=== PATIENT | female | born 1990 | race Caucasian/White ===

== ENCOUNTER → 2019-04-01 | Emergency (ER) | payer BC ==
[~2019-04-01] VITALS: Ht 162.6 cm; Wt 75.0 kg
[~2019-04-01] MED LIST: CYCL10TA7 PO; HYDR-4011 PO; IBUP-1542 PO; LORA-441 PO; LORAZEPAM 1 MG TAB PO ONE
[2019-04-01 03:56] VITALS: Ht 162.6 cm; Wt 75.0 kg
--- NOTE | 2019-04-01 04:48 | ERD ---
ER Documentation Chief Complaint Chief Complaint ANXIOUS DUE TO STRESS FROM PARENTS; HAVING DIARRHEA; DENIES SI/HI HPI 28-year-old female, previously healthy, presents to the emergency department complaining of sudden onset of dizziness, chest pain, palpitations associated with perioral numbness and finger paresthesias. The patient states that she has been under a lot of stress and persistent worrying about health and family. She has had similar episodes in the past but less intense. She is not taking any medication at this time. History provided by patient. ROS All systems reviewed and are negative except as per history of present illness. Medications Home Meds Active Scripts Lorazepam* (Ativan*) 0.5 Mg Tablet, 0.5 MG PO Q8H PRN for ANXIETY, #10 TAB Prov:DEEPIKA RAYA MD 04/01/19 Ibuprofen* (Motrin*) 600 Mg Tab, 600 MG PO Q6H PRN for PAIN AND OR ELEVATED TEMP, #30 TAB Prov:OMARI RASHID NP 04/20/16 Cyclobenzaprine Hcl* (Cyclobenzaprine Hcl*) 10 Mg Tablet, 10 MG PO TID, #15 TAB Prov:OMARI RASHID NP 04/20/16 Hydrocodone/Acetaminophen ([place] 5-325 Tablet) 1 Each Tablet, 1 TAB PO Q6H PRN for PAIN, #20 TAB Prov:OMARI RASHID NP 04/20/16 Reported Medications [none] Unknown Strength No Conflict Check 04/20/16 Allergies Allergies: Coded Allergies: vancomycin (Verified Allergy, Unknown, 04/01/19) PMhx/Soc History of Surgery: No Anesthesia Reaction: No Hx Neurological Disorder: No Hx Respiratory Disorders: No Hx Cardiac Disorders: No Hx Psychiatric Problems: No Hx Miscellaneous Medical Probl: No Hx Alcohol Use: No Hx Substance Use: No Hx Tobacco Use: Yes FmHx Family History: No diabetes, No coronary disease Physical Exam Vitals Vital Signs Date Temp Pulse Resp B/P (MAP) Pulse Ox O2 O2 Flow FiO2 Time Delivery Rate 04/01/19 98.9 97 18 130/80 99 Room Air 06:01 (97) 04/01/19 99.5 107 20 153/77 99 03:56 (102) Physical Exam Const: No acute distress Head: Atraumatic Eyes: Normal Conjunctiva ENT: Normal External Ears, Nose and Mouth. Neck: Full range of motion. No meningismus. Resp: Clear to auscultation bilaterally Cardio: Regular rate and rhythm, no murmurs Abd: Soft, non tender, non distended. Normal bowel sounds Skin: No petechiae or rashes Back: No midline or flank tenderness Ext: No cyanosis, or edema Neur: Awake and alert Psych: Normal Mood and Affect Results 24 hrs Laboratory Tests Test 04/01/19 04:57 POC Beta HCG, Qualitative NEGATIVE Current Medications Medications Dose Sig/Lynnette Start Time Status Last (Trade) Ordered Route PRN Stop Time Admin Dose Reason Admin Lorazepam 1 mg ONCE ONCE 04/01/19 DC 04/01/19 (Ativan) PO 05:00 04/01/19 05:03 05:01 Procedures/MDM Vital signs stable, Physical exam unremarkable, neurovascular exam intact. Differential diagnosis include but not limited to: Depression, anxiety, migraine, thyroid disease, electrolyte imbalance. Low suspicion for acute coronary event, aortic dissection, CVA. Physical examination and clinical presentation consistent most likely with anxiety. During the ED course the patient remained stable, no new complaints. The patient received treatment with lorazepam presenting overall improvement of the symptoms. Treatment options, results and clinical impression discussed with patient who agrees with management. The patient is stable to be treated outpatient and will be discharged home with a Rx for lorazepam, some side effects of prescribed me dications (headache, rash, nausea, vomiting, diarrhea, drowsiness, habituation, bleeding, hypertension, interactions with other medications) were reviewed. The patient was instructed to follow up with the primary care provider in the next 48h. If symptoms persist, worsen or new symptoms develop, then patient should return to the ED immediately. Instructions explained and given directly by me to the patient with acknowledgment and demonstrated understanding. Disclaimer: Inadvertent spelling and grammatical errors are likely due to EHR/dictation software use and do not reflect on the overall quality of patient care. Also, please note that the electronic time recorded on this note does not necessarily reflect the actual time of the patient encounter. Departure Diagnosis: Primary Impression: Anxiety Condition: Stable Patient Instructions: Your Body's Response to Anxiety Additional Instructions: Thank you very much for allowing us to participate in your care. Your health and safety is our top priority at [facility]. The evaluation in the emergency department has been done to rule out an acute emergency. Chronic, [id number] conditions may have not been evaluated; therefore, you need to follow up with a primary care provider in the next 48h. If symptoms persist, worsen or new symptoms develop, then patient should return to the ED immediately. Call your primary care doctor TOMORROW for an appointment during the next 2-4 days and bring all the information provided. Have prescriptions filled and follow precisely the directions on the label. If the symptoms get worse and your provider is unavailable, return to the Emergency Department immediately. DEEPIKA RAYA MD Apr 01, 2019 04:48
[2019-04-01 06:01] VITALS: BP 130/80; PULSE 97; RESP 18
== END | disposition home or self-care (01) ==
LOC: FTE 03:47
DX: F41.9 Anxiety disorder, unspecified (principal); Z87.891 Personal history of nicotine dependence
CPT/HCPCS: 81025; 99283; Z7610